=== PATIENT | male | born 1950 | race Caucasian/White ===

== ENCOUNTER 2019-03-06 18:01 | Inpatient (IN) | payer MEDICARE, BC ==
[~2019-03-06] VITALS: Ht 188 cm; Wt 145.2 kg
[~2019-03-06 18:01] MED LIST: ASPI81CH PO; CENTRUM SILVER1 EAC2 PO; DICL25ER PO; DICL75ER PO; ENOX40I SC; FURO20 PO; FURO40 PO; GARLIC PO; Garlic500 MG PO; HYDR1TAB94 PO; K-Dur20 MEQ PO; METO25 PO; METO25ER PO; MSM1000 MG PO; NATTOKINASE PO; OMEPRAZOLE MAGN20 MG PO; OXYC5 PO; Omeprazole20 M1 PO; POTCHL20ER PO; PROPAFENONE HC PO; PROPAFENONE PO; SIMV10 PO; SOY LECITHIN; SOY LECITHIN PO; [UNRECOGNIZED DRUG - OTHER]
[2019-03-06 18:55] LABS: BASOPHILS ABSOLUTE AUTO 0.03 K/mm3 (0.00-0.23); BASOPHILS PERCENT AUTO 1 % (0-2); EOSINOPHILS ABSOLUTE AUTO 0.18 K/mm3 (0.00-0.68); EOSINOPHILS PERCENT AUTO 3 % (0-6); Hematocrit 54.6 % (37.0-53.0); Hemoglobin 17.3 g/dL (13.5-17.5); IMMATURE GRAN ABSOLUTE AUTO 0.02 K/mm3 (0.00-0.10); IMMATURE GRAN PERCENT AUTO 0 % (0-1); LYMPHOCYTES ABSOLUTE AUTO 1.37 K/mm3 (0.84-5.20); LYMPHOCYTES PERCENT AUTO 23 % (21-46); MONOCYTES ABSOLUTE AUTO 0.96 K/mm3 (0.16-1.47); MONOCYTES PERCENT AUTO 16 % (4-13); Mean Corpuscular HGB 30.7 pg (26.0-34.0); Mean Corpuscular HGB Conc 31.7 g/dL (31.5-36.5); Mean Corpuscular Volume 97 fL (80-100); Mean Platelet Volume 9.7 fL (9.1-12.4); NEUTROPHILS ABSOLUTE AUTO 3.53 K/mm3 (1.96-9.15); NEUTROPHILS PERCENT AUTO 58 % (41-73); Platelet Count 236 K/mm3 (150-400); RDW Coefficient Variation 12.3 % (11.7-14.2); RDW Standard Deviation 44.6 fL (35.1-46.3); Red Blood Cell Count 5.64 M/mm3 (4.30-5.90); White Blood Cell Count 6.09 K/mm3 (4.00-11.30)
[2019-03-06 19:15] LABS: Alanine Aminotransfer (ALT/SGP 43 U/L (12-78); Albumin, Blood 3.6 g/dL (3.4-5.0); Albumin/Globulin Ratio 0.9 (0.8-1.8); Alk Phos 63 U/L (50-136); Anion Gap 6 mmol/L (6-16); Aspartate Aminotrans (AST/SGOT 36 U/L (12-37); Bilirubin, Total 0.7 mg/dL (0.1-1.0); Blood Urea Nitrogen 21 mg/dL (8-24); Bun/Creatinine Ratio 19.3 (12.0-20.0); CO2, Blood 27 mmol/L (21-32); Calcium, Blood 8.4 mg/dL (8.5-10.1); Chloride, Blood 104 mmol/L (98-108); Creatinine, Blood 1.09 mg/dL (0.60-1.20); Globulin, Blood 3.9 g/dL (2.2-4.0); Glomerular Filtration Rate >60 (60-); Glucose, Blood 100 mg/dL (70-99); Potassium, Blood 4.1 mmol/L (3.5-5.5); Sodium, Blood 137 mmol/L (136-145); Total Protein, Blood 7.5 g/dL (6.4-8.2); Troponin I <0.015 ng/mL (0.000-0.040)
[2019-03-06] MEDS ORDERED: Celebrex200 MG (20:10)
[2019-03-06] MEDS ORDERED: ALBU90OI6 INH (20:10)
[2019-03-06] MEDS ORDERED: CITA20 PO (22:30)
[2019-03-06] MEDS ORDERED: Lecithin-191200 MG PO (22:31)
[2019-03-06] MEDS ORDERED: FURO20 PO (22:32)
[2019-03-06] MEDS ORDERED: ALPR.5 PO (22:35)
[2019-03-06] MEDS ORDERED: CELE200 PO (22:35)
--- NOTE | 2019-03-07 05:02 | NUR ---
SHIFT SUMMARY PT NEW ADMIT THIS SHIFT. AAOX4. NPO. PT DENIES DISCOMFORT/NAUSEA SINCE ARRIVAL TO FLOOR. PT REPORTING LARGE AMOUNTS FLATUS THIS SHIFT, NO BM. SURGICAL CONSULT CALLED THIS AM. AT BEDSIDE. PT RESTING WELL THIS AM. CALL LIGHT IN REACH + PT ORIENTED TO USE.
--- NOTE | 2019-03-07 07:47 | NUR ---
PT REPORTING NO NAUSEA AT THIS TIME. NO BM LAST NIGHT BUT PASSING FLATUS. ABD SLIGHTLY DISTENTED PER PT REPORT. REQUESTING HOME MEDS TO BE USED. PT WORRIED ABOUT BEING CHARGED FOR HOSPITAL MEDS.
[2019-03-07 08:23] LABS: Hematocrit 50.7 % (37.0-53.0); Hemoglobin 16.3 g/dL (13.5-17.5); Mean Corpuscular HGB 30.7 pg (26.0-34.0); Mean Corpuscular HGB Conc 32.1 g/dL (31.5-36.5); Mean Corpuscular Volume 96 fL (80-100); Mean Platelet Volume 9.4 fL (9.1-12.4); Platelet Count 209 K/mm3 (150-400); RDW Coefficient Variation 12.7 % (11.7-14.2); RDW Standard Deviation 44.7 fL (35.1-46.3); Red Blood Cell Count 5.31 M/mm3 (4.30-5.90); White Blood Cell Count 5.38 K/mm3 (4.00-11.30)
[2019-03-07 08:45] LABS: Alanine Aminotransfer (ALT/SGP 45 U/L (12-78); Albumin, Blood 3.3 g/dL (3.4-5.0); Albumin/Globulin Ratio 0.9 (0.8-1.8); Alk Phos 61 U/L (50-136); Anion Gap 4 mmol/L (6-16); Aspartate Aminotrans (AST/SGOT 31 U/L (12-37); Bilirubin, Total 0.9 mg/dL (0.1-1.0); Blood Urea Nitrogen 19 mg/dL (8-24); Bun/Creatinine Ratio 22.1 (12.0-20.0); CO2, Blood 28 mmol/L (21-32); Chloride, Blood 105 mmol/L (98-108); Creatinine, Blood 0.86 mg/dL (0.60-1.20); Globulin, Blood 3.7 g/dL (2.2-4.0); Glomerular Filtration Rate >60 (60-); Glucose, Blood 93 mg/dL (70-99); Potassium, Blood 4.1 mmol/L (3.5-5.5); Sodium, Blood 137 mmol/L (136-145)
--- NOTE | 2019-03-07 12:36 | NUR ---
TALKED WITH PT REGARDING HIS NPO DIET. WILL CALL DR. BRUCE'S OFFICE TO SEE ABOUT PROGRESSING TO A CLEAR LQUID DIET
--- NOTE | 2019-03-07 13:28 | NUR ---
DR BRUCE OFFICE CALLED RE CONSULT CALLED LAST NIGHT UPDATE PT PASSING GAS WANTING TO TRIAL CL DIET NO ABD PAIN OR NAUSEA
--- NOTE | 2019-03-07 13:54 | NUR ---
popsicle and ice water given pt sitting up in chair
--- NOTE | 2019-03-07 15:14 | NUR ---
DR BRUCE BY TO SEE PT MAXWELL CL DIET
--- NOTE | 2019-03-07 16:34 | NUR ---
[facility] stated his r [facility] is hurting stated it has for the past week req po pain meds asked if it can be a septic joint has had a total knee replacement
--- NOTE | 2019-03-07 18:54 | NUR ---
SHIFT SUMMARY PT REPORTS NO NAUSEA DURING SHIFT. TOLERATED CLEAR LIQUIDS. MD ADVANCED DIET TOLERATED. PT TOLERATED FULL LIQUIDS FOR DINNER. WILL ADVANCE TO REGULAR DIET FOR BREAKFAST. PT COMPLAINING OF R KNEE PAIN. NOTIFIED DR. STEINBERG. PO TYLENOL GIVEN WITH NO RELIEF 25MCG FENTANYL GIVEN REPORTS PAIN IMPROVED.
--- NOTE | 2019-03-08 04:46 | NUR ---
DID WELL DURIN NIGHT. BIGGEST COMPLAINT WAS RIGHT KNEE PAIN AND DR. STEINBERG ADDRESSED. TORADOL WAS GIVEN AND PT STATES WAS VERY EFFECTIVE. PLAN FOR US TODAY FOR R/O PE. ABD REMAINS SOFT WITH +BT AND +FLATUS. HAS BEEN PASSING FLATUS. PT AMBULATED INDEPENDENTLY IN ROOM. ADVANCE DIET TODAY. SPOUSE REMAINS AT BEDSIDE. CALL LIGHT IN REACH.
--- NOTE | 2019-03-08 11:57 | NUR ---
dr lee by to see pt ok to go home no rx toradol given for r knee pain to f/u dr corbett no acute changes
--- NOTE | 2019-03-08 12:20 | NUR ---
[facility] escort to car
--- NOTE | 2019-03-08 16:05 | NUR ---
DR LORD BY TO SEE PT PASSING FLATUS OK TO CLAMP NGT
== END 2019-03-08 12:20 | disposition home or self-care (01) | DRG 389 ==
LOC: ER 18:01 → SURS 21:10
PROVIDERS: Physician Assistant; ADMIT Internal Medicine
DX: K56.609 Unspecified intestinal obstruction, unspecified as to partial versus complete obstruction (principal); Z68.41 Body mass index [BMI] 40.0-44.9, adult; E66.01 Morbid (severe) obesity due to excess calories; I10 Essential (primary) hypertension; Z86.73 Personal history of transient ischemic attack (TIA), and cerebral infarction without residual deficits; I25.10 Atherosclerotic heart disease of native coronary artery without angina pectoris; I50.9 Heart failure, unspecified; M70.51 Other bursitis of knee, right knee; Z79.01 Long term (current) use of anticoagulants; Z79.82 Long term (current) use of aspirin; Z95.2 Presence of prosthetic heart valve
CPT/HCPCS: 36415; 74176; 80053; 83690; 84484; 85025; 85027; 93971; 96361; 96374; 99285-25; J1650; J1885; J2405; J3010; J7030

== ENCOUNTER 2020-01-05 07:55 | Day surgery (SDC) | payer MEDICARE, BC ==
[~2020-01-05] VITALS: Ht 186 cm; Wt 148.1 kg
[~2020-01-05 07:55] MED LIST changes: +ALBU90OI6 INH; +ALPR.5 PO; +CELE200 PO; +CITA20 PO; +Celebrex200 MG; +Lecithin-191200 MG PO
--- NOTE | 2020-01-05 08:39 | NUR ---
Ambulatory in Day Surgery. History, Chart, Medications and Allergies reviewed before start of procedure.Patient confirms NPO status and agrees with scheduled surgery. Patient states colon prep results clear. Patient States Post-Procedure ride home has been arranged WITH NEIGHBOR
--- NOTE | 2020-01-05 08:53 | NUR ---
01/05/20 0853 Lizzy Bernal PATIENT DETERMINED TO BE ASA APPROPRIATE FOR MODERATE SEDATION PRIOR TO START OF PROCEDURE BY DR. FERRIS. 3-LEAD EKG REVIEWED WITH PHYSICIAN PRIOR TO START OF PROCEDURE. PATIENT CONFIRMS NPO STATUS AND AGREES WITH SCHEDULED PROCEDURE. History, Chart, Medications and Allergies reviewed before start of procedure. MONITOR INTACT WITH CONTINUOUS PULSE OXIMETRY AND INTERMITTENT BP. O2 VIA N/C INTACT THROUGHOUT SEDATION/PROCEDURE.
== END 2020-01-05 09:46 | disposition home or self-care (01) ==
LOC: ORSCMMR 07:55 → ORD 09:00 → ORSCMMR 09:46
PROVIDERS: Internal Medicine Gastroenterology
PROC: 0DBL8ZX Excision of Transverse Colon, Via Natural or Artificial Opening Endoscopic, Diagnostic (ICD-10-PCS; principal; 2020-01-05 09:00)
DX: Z12.11 Encounter for screening for malignant neoplasm of colon (principal); Z86.010 Personal history of colon polyps; D12.3 Benign neoplasm of transverse colon; K57.30 Diverticulosis of large intestine without perforation or abscess without bleeding; Z86.73 Personal history of transient ischemic attack (TIA), and cerebral infarction without residual deficits; I48.91 Unspecified atrial fibrillation; K21.9 Gastro-esophageal reflux disease without esophagitis; E66.01 Morbid (severe) obesity due to excess calories; Z68.41 Body mass index [BMI] 40.0-44.9, adult; Z79.82 Long term (current) use of aspirin; Z79.899 Other long term (current) drug therapy
CPT/HCPCS: 88305; J2250; J3010; J7120

== ENCOUNTER 2022-11-04 12:50 | Emergency (ER) | payer MEDICARE, BC ==
[~2022-11-04] VITALS: Ht 185.4 cm; Wt 133.8 kg
[2022-11-04 13:59] LABS: Influenza A, PCR NEGATIVE (NEGATIVE); Influenza B, PCR NEGATIVE (NEGATIVE); Resp Syncytial Virus, PCR NEGATIVE (NEGATIVE); SARS-Cov-2 (COVID-19) PCR, MMC NEGATIVE (NEGATIVE)
[2022-11-04 14:11] LABS: BASOPHILS ABSOLUTE AUTO 0.07 K/mm3 (0.00-0.23); BASOPHILS PERCENT AUTO 1 % (0-2); EOSINOPHILS ABSOLUTE AUTO 0.37 K/mm3 (0.00-0.68); EOSINOPHILS PERCENT AUTO 3 % (0-6); Hematocrit 49.5 % (37.0-53.0); Hemoglobin 16.6 g/dL (13.5-17.5); IMMATURE GRAN ABSOLUTE AUTO 0.04 K/mm3 (0.00-0.10); IMMATURE GRAN PERCENT AUTO 0 % (0-1); LYMPHOCYTES ABSOLUTE AUTO 1.16 K/mm3 (0.84-5.20); LYMPHOCYTES PERCENT AUTO 10 % (21-46); MONOCYTES ABSOLUTE AUTO 1.21 K/mm3 (0.16-1.47); MONOCYTES PERCENT AUTO 10 % (4-13); Mean Corpuscular HGB 31.7 pg (26.0-34.0); Mean Corpuscular HGB Conc 33.5 g/dL (31.5-36.5); Mean Corpuscular Volume 95 fL (80-100); Mean Platelet Volume 10.4 fL (9.1-12.4); NEUTROPHILS ABSOLUTE AUTO 8.85 K/mm3 (1.96-9.15); NEUTROPHILS PERCENT AUTO 76 % (41-73); Platelet Count 178 K/mm3 (150-400); RDW Coefficient Variation 13.3 % (11.7-14.2); RDW Standard Deviation 46.1 fL (35.1-46.3); Red Blood Cell Count 5.24 M/mm3 (4.30-5.90)
[2022-11-04 14:34] LABS: Albumin, Blood 3.8 g/dL (3.4-5.0); Albumin/Globulin Ratio 1.4 (0.8-1.8); Bilirubin, Total 1.3 mg/dL (0.1-1.0); Bun/Creatinine Ratio 23.3 (12.0-20.0); Calcium, Blood 8.8 mg/dL (8.5-10.1); Creatinine, Blood 1.16 mg/dL (0.60-1.20); Globulin, Blood 2.8 g/dL (2.2-4.0); Potassium, Blood 4.9 mmol/L (3.5-5.5); Total Protein, Blood 6.6 g/dL (6.4-8.2)
== END 2022-11-04 16:45 | disposition home or self-care (01) ==
LOC: ER 12:50
PROVIDERS: Physician Assistant
DX: I50.9 Heart failure, unspecified (principal); Z79.899 Other long term (current) drug therapy; Z79.82 Long term (current) use of aspirin; Z20.822 Contact with and (suspected) exposure to COVID-19; Z88.8 Allergy status to other drugs, medicaments and biological substances; Z91.010 Allergy to peanuts; Z91.018 Allergy to other foods; Z95.1 Presence of aortocoronary bypass graft
CPT/HCPCS: 0241U; 36415; 71046; 80053; 83880; 84484; 85025; 93005; 93010; 99283-25

== ENCOUNTER → 2023-05-30 | Outpatient (CLI) | payer MEDICARE, BC ==
[2023-05-30 16:58] LABS: BASOPHILS ABSOLUTE AUTO 0.07 K/mm3 (0.00-0.23); BASOPHILS PERCENT AUTO 1 % (0-2); EOSINOPHILS ABSOLUTE AUTO 0.36 K/mm3 (0.00-0.68); EOSINOPHILS PERCENT AUTO 4 % (0-6); Hematocrit 43.3 % (37.0-53.0); Hemoglobin 14.4 g/dL (13.5-17.5); IMMATURE GRAN ABSOLUTE AUTO 0.05 K/mm3 (0.00-0.10); IMMATURE GRAN PERCENT AUTO 1 % (0-1); LYMPHOCYTES ABSOLUTE AUTO 1.04 K/mm3 (0.84-5.20); LYMPHOCYTES PERCENT AUTO 11 % (21-46); MONOCYTES ABSOLUTE AUTO 0.91 K/mm3 (0.16-1.47); MONOCYTES PERCENT AUTO 10 % (4-13); Mean Corpuscular HGB 30.2 pg (26.0-34.0); Mean Corpuscular HGB Conc 33.3 g/dL (31.5-36.5); Mean Corpuscular Volume 91 fL (80-100); Mean Platelet Volume 9.1 fL (9.1-12.4); NEUTROPHILS ABSOLUTE AUTO 6.84 K/mm3 (1.96-9.15); NEUTROPHILS PERCENT AUTO 74 % (41-73); Platelet Count 307 K/mm3 (150-400); RDW Coefficient Variation 16.1 % (11.7-14.2); RDW Standard Deviation 54.3 fL (35.1-46.3); Red Blood Cell Count 4.77 M/mm3 (4.30-5.90); White Blood Cell Count 9.27 K/mm3 (4.00-11.30)
[2023-05-30 17:22] LABS: Albumin, Blood 3.3 g/dL (3.4-5.0); Albumin/Globulin Ratio 0.8 (0.8-1.8); Bilirubin, Total 0.7 mg/dL (0.1-1.0); Bun/Creatinine Ratio 23.5 (12.0-20.0); Calcium, Blood 8.8 mg/dL (8.5-10.1); Creatinine, Blood 1.15 mg/dL (0.60-1.20); Globulin, Blood 4.2 g/dL (2.2-4.0); Potassium, Blood 5.1 mmol/L (3.5-5.5); Thyroxine (T4) 11.6 ug/dL (4.5-12.1); Total Protein, Blood 7.5 g/dL (6.4-8.2)
== END ==
LOC: LAB SHORT 15:00 → LAB 15:00
PROVIDERS: Physician Assistant Medical
DX: I11.0 Hypertensive heart disease with heart failure (principal); I50.43 Acute on chronic combined systolic (congestive) and diastolic (congestive) heart failure; R53.83 Other fatigue
CPT/HCPCS: 80053; 83880; 84436; 85025

== ENCOUNTER → 2023-06-17 | Outpatient (CLI) | payer MEDICARE, BC ==
[2023-06-17 15:40] LABS: BASOPHILS ABSOLUTE AUTO 0.03 K/mm3 (0.00-0.23); BASOPHILS PERCENT AUTO 0 % (0-2); EOSINOPHILS ABSOLUTE AUTO 0.02 K/mm3 (0.00-0.68); EOSINOPHILS PERCENT AUTO 0 % (0-6); Hematocrit 41.8 % (37.0-53.0); Hemoglobin 13.8 g/dL (13.5-17.5); IMMATURE GRAN ABSOLUTE AUTO 0.04 K/mm3 (0.00-0.10); IMMATURE GRAN PERCENT AUTO 0 % (0-1); LYMPHOCYTES ABSOLUTE AUTO 0.34 K/mm3 (0.84-5.20); LYMPHOCYTES PERCENT AUTO 4 % (21-46); MONOCYTES ABSOLUTE AUTO 0.94 K/mm3 (0.16-1.47); MONOCYTES PERCENT AUTO 10 % (4-13); Mean Corpuscular HGB 30.3 pg (26.0-34.0); Mean Corpuscular Volume 92 fL (80-100); NEUTROPHILS ABSOLUTE AUTO 8.29 K/mm3 (1.96-9.15); NEUTROPHILS PERCENT AUTO 86 % (41-73); Platelet Count 211 K/mm3 (150-400); RDW Coefficient Variation 15.9 % (11.7-14.2); RDW Standard Deviation 53.8 fL (35.1-46.3); Red Blood Cell Count 4.55 M/mm3 (4.30-5.90); White Blood Cell Count 9.66 K/mm3 (4.00-11.30)
[2023-06-17 15:50] LABS: Albumin, Blood 3.1 g/dL (3.4-5.0); Albumin/Globulin Ratio 0.8 (0.8-1.8); Bilirubin, Total 0.4 mg/dL (0.1-1.0); Bun/Creatinine Ratio 19.5 (12.0-20.0); Calcium, Blood 9.1 mg/dL (8.5-10.1); Creatinine, Blood 1.33 mg/dL (0.60-1.20); Globulin, Blood 4.1 g/dL (2.2-4.0); Potassium, Blood 4.6 mmol/L (3.5-5.5); Total Protein, Blood 7.2 g/dL (6.4-8.2)
== END | disposition home or self-care (01) ==
LOC: LAB SHORT 15:35 → LAB 15:35
PROVIDERS: Family Medicine
DX: I50.9 Heart failure, unspecified (principal); R50.9 Fever, unspecified
CPT/HCPCS: 80053; 83880; 85025

== ENCOUNTER → 2025-01-02 | Outpatient (CLI) | payer MEDICARE, BC ==
[2025-01-02 15:23] LABS: Bun/Creatinine Ratio 21.3 (12.0-20.0); Calcium, Blood 9.1 mg/dL (8.5-10.1); Creatinine, Blood 1.27 mg/dL (0.60-1.20); Potassium, Blood 4.4 mmol/L (3.5-5.5)
== END ==
LOC: LAB SHORT 15:15 → LAB 15:15
PROVIDERS: Family Medicine
DX: R10.12 Left upper quadrant pain (principal)
CPT/HCPCS: 80048